=== PATIENT | male | born 1935 | race Hispanic/Latino ===

== ENCOUNTER → 2017-07-13 | Day surgery (SDC) | payer OTHER ==
[2017-07-12 11:27] LABS: BASOPHILS % 0.5 % (0.0-1.0); EOSINOPHILS # (AUTO) 0.2 (0.0-0.4); EOSINOPHILS % 2.6 % (0.0-6.0); HEMATOCRIT 42.4 % (38.2-49.6); HEMOGLOBIN 13.9 g/dL (14.0-18.0); LYMPHOCYTES # (AUTO) 2.8 (1.0-3.2); MEAN CORPUSCULAR HEMOGLOBIN 29.7 pg (28-32); MEAN CORPUSCULAR HGB CONC 32.8 g/dL (31-35); MEAN CORPUSCULAR VOLUME 90.6 fL (81-99); MONOCYTES # (AUTO) 0.8 (0.2-0.8); MONOCYTES % 9.7 % (4.4-11.3); NEUTROPHILS # (AUTO) 4.2 (2.1-6.9); PLATELET COUNT 191 x10e3/uL (140-360); RED BLOOD COUNT 4.68 x10e6/uL (4.3-5.7); RED CELL DISTRIBUTION WIDTH 14.5 % (11.7-14.4)
[2017-07-12 11:46] LABS: ANION GAP 11.5 mmol/L (8-16); BLOOD UREA NITROGEN 18 mg/dL (7-26); BUN/CREATININE RATIO 18 (6-25); CALCIUM 9.6 mg/dL (8.4-10.2); CARBON DIOXIDE 28 mmol/L (22-29); CHLORIDE 108 mmol/L (98-107); CREATININE, SERUM 0.99 mg/dL (0.72-1.25); EST GLOMERULAR FILTRATION RATE > 60 ML/MIN (60-); GLUCOSE 139 mg/dL (74-118); POTASSIUM 4.5 mmol/L (3.5-5.1); SODIUM 143 mmol/L (136-145)
--- NOTE | 2017-07-12 13:26 | Diagnostic Imaging Report ---
PROCEDURE: Frontal and lateral views of the chest. COMPARISON: Chest radiograph 09/26/2016 INDICATIONS: PRE-OP FINDINGS: Lines/tubes: None. Lungs: Overall low lung volumes with persistent decreased volume on the left. Stable left basilar atelectasis secondary to elevation of the left hemidiaphragm. There is no evidence of pneumonia or pulmonary edema. Pleura: No pleural effusion or pneumothorax. Heart and mediastinum: Cardiac silhouette remains obscured but may be mildly enlarged. Tortuous aorta and aortic arch calcifications. Bones: No acute bony abnormality. Stable mid thoracic kyphosis secondary to loss of thoracic spine vertebral body height. Median sternotomy wires. IMPRESSION: No acute thoracic abnormalities. Dictated by: Say Ramirez M.D. on 07/12/2017 at 13:35 Electronically approved by: Say Ramirez M.D. on 07/12/2017 at 13:35
[~2017-07-13] MED LIST: ATORVASTATIN CA10 MG PO; BUPIVACAINE 0.25% 30ML SDV INJ ONE; CLONIDINE HCL 0.1 MG TAB ONE; CLONIDINE HCL0.1 MG PO; DEXAMETHASONE SOD PHOS INJ 4 MG/ML VIAL ONE; DOXYCYCLINE HY100 MG PO; FENTANYL CITRATE/PF 100MCG/2 ML INJ ONE; FUROSEMIDE40 MG PO; GLYCOPYRROLATE INJ 1MG/ 5 ML SYR ONE; LIDOCAINE HCL 2% LOCAL INJ 5 ML SDV VIAL INJ ONE; LOSARTAN-HCTZ1 EAC2 PO; METOPROLOL TART25 MG PO; NEOSTIGMINE 5 MG/5ML SYR ONE; NORCO 7.5-3251 EACH PO; OMEPRAZOLE20 MG PO; OMEPRAZOLE40 MG PO; ONDANSETRON HCL INJ 2 MG/ML VIAL ONE; POTASSIUM CHLO10 ME1 PO; PROPOFOL IV EMULSION 10 MG/ML 20 ML VIAL ONE; ROCURONIUM BROMIDE 10 MG/ML 5ML VIAL ONE; SEVOFLURANE INHAL SOLN 250 ML PEN BTL ONE; SIMVASTATIN20 MG PO; TOBRADEX EYE O3.5 GM OP; TYLENOL WITH C1 EACH PO
--- OUTSIDE RECORDS SUMMARY | 2017-07-13 05:57 | XMS REPORT ---
Author Author [facility] Address Unknown Phone Unavailable Care Team Providers Care Bottling Room Worker Name Role Phone LA OJNES Unavailable Unavailable Problems This patient has no known problems. Allergies, Adverse Reactions, Alerts This patient has no known allergies or adverse reactions. Medications This patient has no known medications. Results Test Description Test Time Test Comments Text Results Atomic Results Result Comments CHEST [address] [facility] [address] [id number] Patient Name: JONATHAN ARREOLA MR #: [id number] : 1935 Age/Sex: 81/M Req #: [id number] Adm Physician: Ordered by: LA JONES MD Report #: [id number] Location: OR Room/Bed: Procedure: [id number] DX/CHEST 2 VIEWS Exam Date: 07/12/17 Exam Time: 1145 REPORT STATUS: Signed PROCEDURE: Frontal and lateral views of the chest. COMPARISON: Chest radiograph 09/26/2016 INDICATIONS: PRE -OP FINDINGS: Lines/tubes: None. Lungs: Overall low lung volumes with persistent decreased volume on the left. Stable left basilar atelectasis secondary to elevation of the left hemidiaphragm. There is no evidence of pneumonia or pulmonary edema. Pleura: No pleural effusion or pneumothorax. Heart and mediastinum: Cardiac silhouette remains obscured but may be mildly enlarged. Tortuous aorta and aortic arch calcifications. Bones: No acute bony abnormality. Stable mid thoracic kyphosis secondary to loss of thoracic spine vertebral body height. Median sternotomy wires. IMPRESSION: No acute thoracic abnormalities. Dictated by: Say Ponce M.D. on 07/12/2017 at 13:35 Electronically approved by: Say Ponce M.D. on 07/12/2017 at 13:35 Dictated By: SAY PONCE MD [id number] Transcribed By: JOE on 07/12/17 1335 COPY TO: LA JONES MD
--- NOTE | 2017-07-13 10:14 | Operative Report ---
DATE OF PROCEDURE: July 13, 2017 PREOPERATIVE DIAGNOSIS: Biliary dyskinesia. POSTOPERATIVE DIAGNOSIS: Biliary dyskinesia. OPERATION PERFORMED: Laparoscopic cholecystectomy. ANESTHESIA: General. COMPLICATIONS: None. ESTIMATED BLOOD LOSS: Minimal. DESCRIPTION OF PROCEDURE: With the patient lying in bed in the supine position under good general endotracheal anesthesia, the abdomen was prepped, Betadine solution, and draped in the usual manner. A Veress needle was introduced into the umbilicus and pneumoperitoneum was established any difficulty. An 11 mm trocar was placed into the umbilicus and a 10 mm video laparoscope was placed into the intra-abdominal cavity. Under direct vision, three 5-mm trocars were placed in the right subcostal region. Video laparoscopy at this point revealed a gallbladder that was boggy and distended. There were also adhesions to the midline of the abdomen from the patient's previous surgery, but these were not in the way of our procedure. The perineum overlying the neck of the gallbladder was then opened and the cystic duct was identified. The cystic duct was followed to its junction with the common duct. Cystic duct was then circumferentially dissected away from common duct, doubly clipped and divided. The cystic artery was similarly doubly clipped and divided. The gallbladder was then slowly and carefully taken off the liver bed using the cautery scissors and perfect hemostasis was ascertained. The gallbladder was grasped through the umbilical port, placed in a pouch, and removed without any difficulty. Video laparoscopy was then again carried out. The liver bed was found to perfectly dry. All the excess fluid was aspirated. The pneumoperitoneum was evacuated and all the trocars were removed under direct vision. The midline fascia at the umbilicus was closed with a [id number] of 0 Vicryl. All layers were infiltrated on the way out with solution of 0.25% Marcaine. Subcutaneous tissue was approximated with 3-0 Vicryl and the skin was closed with subcuticular 5-0 Vicryl. Benzoin, Steri-Strips, and Band-Aids were applied. The sponge, lap, and needle count was correct. The patient tolerated the procedure well and returned to the recovery room in stable condition. Job#: [id number]
== END | disposition home or self-care (01) ==
LOC: OR 05:53
PROVIDERS: ATTEND Surgery
DX: K82.8 Other specified diseases of gallbladder (principal); I25.810 Atherosclerosis of coronary artery bypass graft(s) without angina pectoris; I10 Essential (primary) hypertension; I25.2 Old myocardial infarction; I44.0 Atrioventricular block, first degree; E78.5 Hyperlipidemia, unspecified; R53.1 Weakness; Z01.810 Encounter for preprocedural cardiovascular examination; Z01.812 Encounter for preprocedural laboratory examination; Z01.818 Encounter for other preprocedural examination; Z95.1 Presence of aortocoronary bypass graft
CPT/HCPCS: 36415; 47562; 71046; 80048; 85025; 88304; 93005; C1766; J1100; J2001; J2405